=== PATIENT | female | born 1980 | race Caucasian/White ===

== ENCOUNTER 2017-04-05 22:36 | Emergency (ER) | payer SELFPAY ==
[~2017-04-05] VITALS: Ht 162.6 cm; Wt 78.9 kg
[2017-04-05 22:43] VITALS: BP 137/70
--- NOTE | 2017-04-06 00:58 | NUR ---
TO ER BED 8
--- NOTE | 2017-04-06 01:10 | NUR ---
36/F BIB FAMILY C/O COLD SYMPTOMS x 4 DAYS. PT HAS NAUSEA BUT DENIES VOMITING OR DIARRHEA. PT HAS PRODUCTIVE COUGH. PT STATES HER FEVER IS ON AND OFF. DENIES HISTORY. DENIES TAKING ANY MEDS.; SKIN IS PINK/WARM/DRY; AAOX4 WITH EVEN AND STEADY GAIT; LUNGS CLEAR BL; HR EVEN AND REGULAR; PT DENIES ANY CP,SOB AT THIS TIME; PATIENT STATES PAIN OF 6/10 AT THIS TIME; VSS; PATIENT POSITIONED FOR COMFORT; HOB ELEVATED; BEDRAILS UP X2; BED DOWN. ER MD MADE AWARE OF PT STATUS.
[2017-04-06 02:31] VITALS: BP 117/70
--- NOTE | 2017-04-06 02:31 | NUR ---
Patient discharged with v/s stable. Written and verbal after care instructions given and explained. Patient alert, oriented and verbalized understanding of instructions. Ambulatory with steady gait. All questions addressed prior to discharge. ID band removed. Patient advised to follow up with PMD THIS WK OR RETURN TO ER IF CONDITION WORSENS. Rx of AMOXICILLIN given. Patient educated on indication of medication including possible reaction and side effects. Opportunity to ask questions provided and answered.
== END 2017-04-06 02:31 | disposition home or self-care (01) ==
LOC: MED 22:36
DX: O99.511 Diseases of the respiratory system complicating pregnancy, first trimester (principal); J02.8 Acute pharyngitis due to other specified organisms; B96.89 Other specified bacterial agents as the cause of diseases classified elsewhere; Z3A.01 Less than 8 weeks gestation of pregnancy
CPT/HCPCS: 76801; 99284; Q0092

== ENCOUNTER 2017-12-11 14:13 | Emergency (ER) | payer MEDICAID ==
[~2017-12-11] VITALS: Ht 165.1 cm; Wt 78.9 kg
[2017-12-11 15:12] VITALS: BP 100/66
--- NOTE | 2017-12-11 16:16 | NUR ---
Patient ambulated to bed 3 with family. RN evaluating patient at bedside.
--- NOTE | 2017-12-11 16:17 | NUR ---
37f bib mother with c/o 10/10 rectal pain x 4 days d/t hemorrhoids. Pt also reportsing mild rectal bleeding. Pt denies any abd pain or n/v/d. Pt is aox4 with steady gait. RR are even and unlabored. Pt positioned to comfort, bed down. NAD. Will continue to monitor.
--- NOTE | 2017-12-11 16:18 | NUR ---
Dr. Vogel evaluating patient at bedside.
[2017-12-11] MEDS ORDERED: HYDROmorphone PFS 2 MG/ML SYR IM ONE (16:30)
[2017-12-11] MEDS ORDERED: LIDOCAINE 1% 500 MG/50 ML VIAL INJ SCH (16:30)
[2017-12-11] MEDS ORDERED: LIDOCAINE MPF 1% 50 MG/5 ML VIAL ONE ×2 (16:40→16:49)
[2017-12-11] MEDS ORDERED: oxyCODONE/APAP 5/325 MG 1 TAB TAB PO ONE (17:30)
[2017-12-11 18:05] VITALS: BP 104/60
--- NOTE | 2017-12-11 18:05 | NUR ---
Patient discharged with v/s stable. Written and verbal after care instructions given and explained. Patient alert, oriented and verbalized understanding of instructions. Ambulatory with steady gait. All questions addressed prior to discharge. ID band removed. Patient advised to follow up with PMD. Rx of Percocet, Naproxen, Miralax, and Hydrocortisone Rectal Suppository given. Patient educated on indication of medication including possible reaction and side effects. Opportunity to ask questions provided and answered.
== END 2017-12-11 18:05 | disposition home or self-care (01) ==
LOC: MED 14:13
DX: K64.5 Perianal venous thrombosis (principal)
CPT/HCPCS: 46083; 96372; 99284; J1170; J2001

== ENCOUNTER 2018-08-08 23:08 | Emergency (ER) | payer MEDICAID ==
[~2018-08-08] VITALS: Ht 170.2 cm; Wt 83.9 kg
[2018-08-08 23:09] VITALS: BP 146/90
--- NOTE | 2018-08-08 23:13 | NUR ---
PT AMBULATORY TO ER [facility] IN STABLE CONDITION W/ STEADY GAIT.
--- NOTE | 2018-08-09 00:06 | NUR ---
PT TAKEN TO BED 1
--- NOTE | 2018-08-09 00:28 | NUR ---
PT BIB FAMILY C/O DIFFUSE ABDOMINAL PAIN. PT IS 3 DAYS S/P-OP LIPOSUCTION. DRAINAGE TUBES NOTED-WITH SERO-SANGUINEOUS DRAIN NOTED. PT DENIES N/V/D; SKIN IS INTACT, PINK/WARM/DRY; AAOX4, PERRL,STEADY GAIT-GUARDING WITH PILLOW; LUNGS CLEAR BL, BREATHING SILGHT LABORED S/P PAIN; HR EVEN AND REGULAR, BL PERIPHERAL PULSES PRESENT; BS ACTIVE X4, NO TENDERNESS TO PALPATION. PT DENIES ANY FEVER, CP AT THIS TIME; PT STS COUGH OFF AND ON WITH MILD SORE THROAT. PT STATES 5/10 PAIN AT THIS TIME; VSS; PATIENT POSITIONED FOR COMFORT; HOB ELEVATED; BEDRAILS UP X2; BED DOWN.
--- NOTE | 2018-08-09 02:03 | NUR ---
Dr. Gambino evaluating patient at bedside.
[2018-08-09 02:10] VITALS: BP 118/73
--- NOTE | 2018-08-09 02:10 | NUR ---
Patient discharged with v/s stable. Written and verbal after care instructions given and explained. Patient alert, oriented and verbalized understanding of instructions. Ambulatory with steady gait. All questions addressed prior to discharge. ID band removed. Patient advised to follow up with PMD. Rx of augmentin 500mg given. Patient educated on indication of medication including possible reaction and side effects. Opportunity to ask questions provided and answered.
== END 2018-08-09 02:10 | disposition home or self-care (01) ==
LOC: MED 23:08
DX: J20.9 Acute bronchitis, unspecified (principal)
CPT/HCPCS: 81002; 81025; 99283